=== PATIENT | female | born 1965 | race Caucasian/White ===

== ENCOUNTER 2017-01-07 14:25 | Emergency (ER) | payer BC ==
[2017-01-07 14:48] VITALS: BP 146/69
--- NOTE | 2017-01-07 14:57 | UC ---
Ear Complaint HPI - HPI Summary HPI Summary: Stabbing right ear pain for 3 days with right side sinus pain no fevers - History of Current Complaint Chief Complaint: UCEar Stated Complaint: EAR PAIN Time Seen by Provider: 01/07/17 14:50 Hx Obtained From: Patient ?: No Onset/Duration: Sudden Onset, Lasting Days - 3, Still Present Severity Initially: Moderate Severity Currently: Moderate Pain Intensity: 5 Pain Scale Used: 0-10 Numeric Aggravating Factors: Nothing Alleviating Factors: Nothing - Allergies/Home Medications Allergies/Adverse Reactions: Allergies Allergy/AdvReac Type Severity Reaction Status Date / Time No Known Allergies Allergy Verified 01/07/17 14:36 PMH/Surg Hx/FS Hx/Imm Hx Previously Healthy: No GI/ History Of: Reports: Kidney Stones Cancer History Of: Denies: Breast Cancer - Surgical History Surgical History: Yes Surgery Procedure, Year, and Place: hysterectomy 2014. skull repair - childhood - Family History Known Family History: Positive: None Family History: no reported cardio vascular issues in family lineage - Social History Occupation: Employed Full-time Lives: With Family Alcohol Use: Occasionally Substance Use Type: None Smoking Status (MU): Never Smoked Tobacco - Immunization History Most Recent Influenza Vaccination: once, couple years ago Review of Systems Constitutional: Negative Skin: Negative Eyes: Negative ENT: Ear Ache - right Respiratory: Negative Cardiovascular: Negative Gastrointestinal: Negative Genitourinary: Negative Motor: Negative Neurovascular: Negative Musculoskeletal: Negative Neurological: Negative Psychological: Negative All Other Systems Reviewed And Are Negative: Yes Physical Exam Triage Information Reviewed: Yes Appearance: Well-Appearing, No Pain Distress, Well-Nourished Vital Signs: Initial Vital Signs Temp 99.1 F 01/07/17 14:36 Pulse 77 01/07/17 14:36 Resp 16 01/07/17 14:36 BP 146/69 01/07/17 14:36 Pulse Ox 96 01/07/17 14:36 Vital Signs Reviewed: Yes Eye Exam: Normal Eyes: Positive: Conjunctiva Clear ENT Exam: Normal ENT: Positive: Normal ENT inspection, Hearing grossly normal, Pharynx normal, Nasal congestion, TMs normal - left, TM bulging - right. Negative: Nasal drainage, Tonsillar swelling, Tonsillar exudate, Trismus, Muffled/hoarse voice Dental Exam: Normal Neck exam: Normal Neck: Positive: Supple, Nontender, No Lymphadenopathy Respiratory Exam: Normal Respiratory: Positive: Chest non-tender, Lungs clear, Normal breath sounds, No respiratory distress, No accessory muscle use Cardiovascular Exam: Normal Cardiovascular: Positive: RRR, No Murmur, Pulses Normal, Brisk Capillary Refill Musculoskeletal Exam: Normal Musculoskeletal: Positive: Strength Intact, ROM Intact, No Edema Neurological Exam: Normal Neurological: Positive: Alert, Muscle Tone Normal Psychological Exam: Normal Skin Exam: Normal Ear Complaint Course/Dx - Course Course Of Treatment: amoxicillin, flonase, increase fluids, tylenol, ibuprofen follow with pcp - Differential Dx/Diagnosis Differential Diagnosis/HQI/PQRI: Cerumen Impaction, Otitis Externa, Otitis Media , URI Provider Diagnoses: Right serrous otitis Discharge - Discharge Plan Condition: Stable Disposition: HOME Prescriptions: Amoxicillin (*) [Amoxicillin 875 MG (*)] 875 mg PO BID #20 tab Fluticasone NASAL SPRAY 50MCG* [Flonase NASAL SPRAY 50MCG*] 2 spray BOTH NARES DAILY #1 btl Patient Education Materials: Chronic Hypertension (ED), Hypertension (ED), Serous Otitis Media (ED), How to Use Nasal [place] (ED) Referrals: Wally Arevalo MD [Primary Care Provider] - 2 Weeks Additional Instructions: Blood pressure to day is a little high 149/69 this should be re-checked with your primary care provider
== END 2017-01-07 15:04 | disposition home or self-care (01) ==
LOC: UCEAST 14:25
DX: H65.91 Unspecified nonsuppurative otitis media, right ear (principal); Z87.442 Personal history of urinary calculi
CPT/HCPCS: 99212; G0463

== ENCOUNTER 2019-11-05 19:53 | Emergency (ER) | payer BC ==
[2019-11-05] MEDS ORDERED: Ondansetron INJ* 2 MG/ML VIAL IV ONE (20:35)
--- NOTE | 2019-11-05 20:36 | ED ---
Abdominal Pain/Female - HPI Summary HPI Summary: Patient is a 54 y/o F presenting to [facility] with cc of nausea onset last night and development of RLQ abd pain around 0500 this morning. She reports that she was eating dinner last night and suddenly became nauseous. Throughout the night , she continued to feel unwell and developed RLQ pain which worsened throughout the day. Pain is rated 7/10 in severity. She endorses warm sensation without measure fever. She denies any vomiting, diarrhea, dysuria, hematuria, or vaginal bleeding. Abdominal surgeries include hysterectomy d/t benign mass, unilateral oophorectomy but unsure of which side. PMHx: hypothyroidism. Nonsmoker, occasional EtOH, no substance use. Medications reviewed. Allergies noted. - History of Current Complaint Chief Complaint: EDPuneetin Stated Complaint: ABD PAIN PER PT Time Seen by Provider: 11/05/19 20:13 Hx Obtained From: Patient Onset/Duration: Gradual Onset, Lasting Hours, Still Present Timing: Constant Severity Initially: Mild Severity Currently: Moderate Pain Intensity: 7 Pain Scale Used: 0-10 Numeric Location: Discrete At: RLQ Radiates: No Character: Sharp Aggravating Factor(s): Nothing Alleviating Factor(s): Nothing Associated Signs and Symptoms: Positive: Fever - warm sensation, Nausea. Negative: Urinary Symptoms, Vaginal Bleeding, Vomiting, Diarrhea Allergies/Adverse Reactions: Allergies Allergy/AdvReac Type Severity Reaction Status Date / Time No Known Allergies Allergy Verified 11/05/19 19:57 Home Medications: Home Medications Methimazole TAB* [Tapazole TAB*] 5 mg PO BID 08/22/18 [History Confirmed ] Vit B12/Intrinsic Fact/Folate [Intrinsi B12/Folate] 1 tab PO DAILY 08/22/18 [ History Confirmed 11/05/19] PMH/Surg Hx/FS Hx/Imm Hx Endocrine/Hematology History: Reports: Hx Thyroid Disease History: Reports: Hx Kidney Stones Sensory History: Reports: Hx Contacts or Glasses Opthamlomology History: Reports: Hx Contacts or Glasses - Cancer History Hx Chemotherapy: No Hx Radiation Therapy: No - Surgical History Surgical History: Yes Surgery Procedure, Year, and Place: hysterectomy 2014. skull repair - childhood Infectious Disease History: No Infectious Disease History: Denies: Traveled Outside the [place] in Last 30 Days - Family History Known Family History: Negative: Cardiac Disease Family History: no reported cardio vascular issues in family lineage - Social History Alcohol Use: Occasionally Hx Substance Use: No Substance Use Type: Reports: None Hx Tobacco Use: No Smoking Status (MU): Never Smoked Tobacco Review of Systems Negative: Fever Positive: Abdominal Pain - RLQ, Nausea. Negative: Vomiting, Diarrhea Negative: dysuria, hematuria, other - vaginal bleeding All Other Systems Reviewed And Are Negative: Yes Physical Exam - Summary Physical Exam Summary: Constitutional: Well-developed, Well-nourished, Alert. (-) Distressed Skin: Warm, Dry HENT: Normocephalic; Atraumatic Eyes: Conjunctiva normal Neck: Musculoskeletal ROM normal neck. (-) JVD, (-) Stridor, (-) Nuchal rigidity Cardio: Rhythm regular, rate normal, Heart sounds normal; Intact distal pulses; Radial pulses are 2+ and symmetric. (-) Murmur Pulmonary/Chest wall: Effort normal. (-) Respiratory distress, (-) Wheezes, (-) Rales Abd: Soft, (+) RLQ tenderness, (-) Distension, (+) Voluntary guarding, (-) Rebound Musculoskeletal: (-) Edema Lymph: (-) Cervical adenopathy Neuro: Alert, Oriented x3 Psych: Mood and affect Normal Triage Information Reviewed: Yes Vital Signs On Initial Exam: Initial Vitals Temp Pulse Resp BP Pulse Ox 98 F 77 15 177/88 98 11/05/19 19:54 11/05/19 19:54 11/05/19 19:54 11/05/19 19:54 11/05/19 19:54 Vital Signs Reviewed: Yes Procedures - Sedation Patient Received Moderate/Deep Sedation with Procedure: No Diagnostics - Vital Signs Vital Signs Temp Pulse Resp BP Pulse Ox 11/05/19 19:54 98 F 77 15 177/88 98 - Laboratory Result Diagrams: 11/05/19 20:42 11/05/19 20:42 Lab Statement: Any lab studies that have been ordered have been reviewed, and results considered in the medical decision making process. - CT Abd/Pel CT CT Interpretation Completed By: Radiologist Summary of CT Findings: Impression: 1. No acute findings in the abdomen or pelvis. Normal retrocecal appendix. 2. Mild to moderate amount of formed stool in the colon. No evidence for bowel obstruction. 3. Colonic diverticulosis without evidence for diverticulitis. ED physician has reviewed this report. Re-Evaluation - Re-Evaluation First Eval Re-Evaluation Time: 12:05 Change: Improved - d/w patient CT results. Still having RLQ tenderness will check TVUS to assess for ovarian pathology (unable to do so until AM). declined pelvic exam Second Eval Re-Evaluation Time: 00:40 Comment: TVUS cancelled as patient will f/u w her [facility] REPA[facility], pending UA prior to d/ c Abdominal Pain Fem Course/Dx - Course Course Of Treatment: 54 y/o F p/w RLQ pain. DDx includes appendicitis, ovarian cyst, renal stone, less likely pancreatitis, GERD, renal stone, Cholecystitis, PID, ovarian torsion, fibroids. Exam relatively unremarkable today, no rigidity or suggestions of acute surgical abd. Pt with negative Hubbard's on exam. Will provide IVFs and zofran. Will obtain cbc to assess for underlying infection. Less likely ovarian torsion. Pt denies pelvic pain and vaginal discharge, also with no fever. Will obtain UA to assess for UTI. Will continue to monitor. CT does not show cause for pain. Labs unremarkable aside from minimally elevated CRP. D/w patient TVUS as she still has right ovary to assess for ovarian pathology (although none noted on CT). Initially patient OK w TVUS but unable to get until AM. Declined pelvic exam. She states she would like to go home, feels comfortable and will follow up w her OB. - Diagnoses Provider Diagnoses: RLQ abdominal pain Discharge ED - Sign-Out/Discharge Documenting (check all that apply): Patient Departure - Patient will be discharged home. - Discharge Plan Condition: Stable Disposition: HOME Patient Education Materials: Acute Abdominal Pain (ED) Referrals: Wally Arevalo MD [Primary Care Provider] - 3 Days Additional Instructions: You were seen in the emergency department for abdominal pain. Your CT scan did not show any acute abnormalities, you still have your right ovary. We discussed getting an ultrasound of your ovary, and that you elected to follow up with your OB. If you have worsening pain please return to the ER seeking further evaluate regarding this. Please follow up with your primary care doctor in the next 2-3 days and return to the emergency department for worsening pain, fevers, or concerning symptoms. It was a pleasure taking care of you today. - Billing Disposition and Condition Condition: STABLE Disposition: Home - Attestation Statements Document Initiated by Santinoibdickson: Yes Documenting Scribe: Ruby Martinez Provider For Whom Erica is Documenting (Include Credential): Dr. Refugio Simms MD Scribe Attestation: Ruby Victor, scribed for Dr. Refugio Simms MD on 11/07/19 at 0815. Scribe Documentation Reviewed: Yes Provider Attestation: The documentation as recorded by the Ruby dennis accurately reflects the service I personally performed and the decisions made by me, Dr. Refugio Simms MD Status of Scribe Document: Viewed
[2019-11-05 20:50] LABS: ABS Basophils 0.1 10^3/ul (0-0.2); ABS Eosinophils 0.2 10^3/ul (0-0.6); ABS Lymphocytes 1.7 10^3/ul (1.0-4.8); ABS Monocytes 0.6 10^3/ul (0-0.8); Eosinophil % 2.3 %; Hematocrit 44 % (35-47); Hemoglobin 15.4 g/dL (12.0-16.0); Lymphocyte % 22.5 %; Mean Corpuscular HGB Conc 35 g/dL (31-36); Mean Corpuscular Hemoglobin 31 pg (27-31); Mean Corpuscular Volume 89 fL (80-97); Mean Platelet Volume 8.3 fL (7.4-10.4); Platelet Count 244 10^3/uL (150-450); Red Blood Count 4.99 10^6 /uL (3.70-4.87); Red Cell Distribution Width 13 % (10-15); White Blood Count 7.6 10^3/uL (3.5-10.8)
[2019-11-05 21:12] LABS: Albumin 4.9 g/dL (3.2-5.2); Albumin/Globulin Ratio 1.6 (1-3); BUN/Creatinine Ratio 18.1 (8-20); C Reactive Protein 10.14 mg/L (<8.01); Calcium 9.9 mg/dL (8.6-10.3); EGFR African American 102.9 (>60); EGFR Non-African American 85.1 (>60); Potassium 3.6 mmol/L (3.5-5.0); Total Bilirubin 0.4 mg/dL (0.2-1.0); Total Protein 7.9 g/dL (6.4-8.9)
[2019-11-05] MEDS ORDERED: Iohexol 300* (CONTRAST) 10 ML SDV IV ONE (21:35)
[2019-11-05] MEDS ORDERED: Morphine 4 MG/ML VIAL (1 ml) 4 MG/ML VIAL IV ONE (23:15)
[2019-11-06 01:44] LABS: Urine Appearance Clear; Urine Bilirubin Negative (Negative); Urine Blood Negative (Negative); Urine Color Yellow; Urine Glucose Negative (Negative); Urine Ketones Trace (Negative); Urine Nitrite Negative (Negative); Urine Protein Negative (Negative); Urine Specific Gravity 1.019 (1.010-1.030); Urine Urobilinogen Negative (Negative)
[2019-11-06 01:47] VITALS: BP 152/100
== END 2019-11-06 01:46 | disposition home or self-care (01) ==
LOC: ED 19:53
DX: R10.31 Right lower quadrant pain (principal); R11.0 Nausea; K57.30 Diverticulosis of large intestine without perforation or abscess without bleeding; E03.9 Hypothyroidism, unspecified; Z90.710 Acquired absence of both cervix and uterus; Z90.721 Acquired absence of ovaries, unilateral
CPT/HCPCS: 36415; 74177; 80053; 81003; 85025; 86140; 96374; 99282; 99283; J2270; J2405; Q9967

== ENCOUNTER 2019-11-12 10:06 | Emergency (ER) | payer BC ==
--- NOTE | 2019-11-12 10:37 | UC ---
Allergic Reaction HPI - HPI Summary HPI Summary: Patient is a 54 year old female, who present today to the urgent care with hives for past 1 day. She reports rash upon waking yesterday. Hives covering majority of body. denies SOB. Patient reports she has been taking benedryl every 4 hours. Patient states last dose at 0700. She has history of hives in the past, last was about 1 year ago. She does report having allergies to garlic and anion. Somebody came - History of Current Complaint Chief Complaint: UCRash Stated Complaint: ALLERGIC REACTION Time Seen by Provider: 11/12/19 10:35 Hx Obtained From: Patient Pain Intensity: 0 - Allergies/Home Medications Allergies/Adverse Reactions: Allergies Allergy/AdvReac Type Severity Reaction Status Date / Time No Known Allergies Allergy Verified 11/05/19 19:57 Home Medications: Home Medications Methimazole TAB* [Tapazole TAB*] 5 mg PO BID 08/22/18 [History Confirmed ] Famotidine TAB* [Pepcid 20 MG TAB*] 20 mg PO DAILY 7 Days #7 tab 11/12/19 [Rx] diPHENhydraMINE PO* [Benadryl PO 50 MG CAP*] 50 mg PO Q6H PRN 7 Days #30 cap 04/25 [Rx] predniSONE 20 mg TAB [Deltasone 20 MG TAB*] 60 mg PO DAILY 5 Days #15 tab [Rx] PMH/Surg Hx/FS Hx/Imm Hx - Additional Past Medical History Additional PMH: Past Medical History : Hyperthyroidism Past Surgical History: No Past History of Procedure Family History : Noncontributory Social History : Weekly alcohol, non smoker, no drug use. Previously Healthy: Yes - Surgical History Surgical History: Yes Surgery Procedure, Year, and Place: hysterectomy 2015. skull repair - childhood - Family History Known Family History: Positive: None Negative: Cardiac Disease Family History: no reported cardio vascular issues in family lineage - Social History Alcohol Use: Weekly Substance Use Type: None Smoking Status (MU): Never Smoked Tobacco - Immunization History Most Recent Influenza Vaccination: once, couple years ago Review of Systems All Other Systems Reviewed And Are Negative: Yes Constitutional: Positive: Negative Skin: Positive: Rash, Other - hives Eyes: Positive: Negative ENT: Positive: Negative Respiratory: Positive: Negative Cardiovascular: Positive: Negative Gastrointestinal: Positive: Negative Genitourinary: Positive: Negative Motor: Positive: Negative Neurovascular: Positive: Negative Musculoskeletal: Positive: Negative Neurological/Mental Status: Positive: Negative Psychological: Positive: Negative Is Patient Immunocompromised?: No Physical Exam - Summary Physical Exam Summary: Physical Exam: Const: Appears well. No signs of apparent distress present. Alert and oriented x 3. Musculo: Walks with a normal gait. Head/Face: Atraumatic, normocephalic on inspection. Eyes: EOMI and PERRLA in both eyes. Conjunctivae clear. No discharge noted ENT: Hearing normal, TM normal appearing bilaterally, non bulging , non erythematous . No tenderness to palpation on maxillary and frontal sinus. No pharyngeal erythema or exudates . Uvula is midline. No soft tissue swelling noted. No cervical or submandibular lymphadenopathy noted. Respiratory: Respirations are unlabored. Lungs clear to auscultation bilaterally, no wheezing , rhonchi or rales noted . CVS: Regular rate and Rhythm, S1S2 normal , no murmurs identified. Extremities: Peripheral circulation is grossly normal. Pulses 2+ Abdomen : Soft non tender , nondistended , Bowel sounds present . No guarding , rebound tenderness or rigidity noted. Skin: Hives noted all over the body including the torso and extremities and neck and slightly on the face. Neuro: Cranial nerves II to XII intact, motor and sensory intact. DTR Intact bilaterally. Mood is normal. Affect is normal. Triage Information Reviewed: Yes Vital Signs: Initial Vital Signs Temp 99.7 F 11/12/19 10:18 Pulse 76 11/12/19 10:18 Resp 20 11/12/19 10:18 BP 140/70 11/12/19 10:18 Pulse Ox 100 11/12/19 10:18 Vital Signs Reviewed: Yes Allergic Reaction Course/Dx - Course Course Of Treatment: During the visit today, we discussed that she has developed hives , unclear etiology . Does not appear to be anaphylactic. She was given 1 dose of Solu-Medrol and also given Benadryl and famotidine. Symptoms remain stable. Repeat vitals were stable and we decided that she can be discharged home and she is comfortable. Plan to follow with the primary doctor in 2 days and follow-up with asthma and front end specialist Patient expressed understanding . - Differential Dx/Diagnosis Provider Diagnosis: Hives, Allergic reaction Discharge ED - Sign-Out/Discharge Documenting (check all that apply): Patient Departure All imaging exams completed and their final reports reviewed: No Studies - Discharge Plan Condition: Stable Disposition: HOME Prescriptions: diPHENhydraMINE PO* [Benadryl PO 50 MG CAP*] 50 mg PO Q6H PRN 7 Days #30 cap PRN Reason: Allergy Symptoms Famotidine TAB* [Pepcid 20 MG TAB*] 20 mg PO DAILY 7 Days #7 tab predniSONE 20 mg TAB [Deltasone 20 MG TAB*] 60 mg PO DAILY 5 Days #15 tab Patient Education Materials: COPD (Chronic Obstructive Pulmonary Disease) (DC) Referrals: Wally Arevalo MD [Primary Care Provider] - 2 Days Con Wynn MD [Medical Doctor] - As Soon As Possible Additional Instructions: Please start taking the medication as prescribed to the pharmacy . Follow up with your primary care doctor in 2 days. Please follow up with allergy and asthma specialist for the consult. BP slightly high, recheck with your PMD within 4 weeks. Return to Urgent care / ER if symptoms get worse. - Billing Disposition and Condition Condition: STABLE Disposition: Home
[2019-11-12] MEDS ORDERED: methylPREDNISolone 125 MG* 2 ML VIAL IM ONE (10:45)
[2019-11-12] MEDS ORDERED: Famotidine TAB* 20 MG PO ONE (10:45)
[2019-11-12] MEDS ORDERED: diPHENhydraMINE PO* 50 MG PO ONE (10:46)
[2019-11-12 12:41] VITALS: BP 129/67
== END 2019-11-12 13:23 | disposition home or self-care (01) ==
LOC: UCEAST 10:06
DX: L50.0 Allergic urticaria (principal); T78.40XA Allergy, unspecified, initial encounter; X58.XXXA Exposure to other specified factors, initial encounter; L50.9 Urticaria, unspecified
CPT/HCPCS: 96372; 99212; A9270-GY; G0463; J2930